=== PATIENT | female | born 1965 | race Two or more races ===

== ENCOUNTER 2024-07-29 09:58 | Inpatient (IN) | payer MEDICAID, OTHER ==
[~2024-07-29] VITALS: Ht 165.1 cm; Wt 65.5 kg
[2024-07-29 11:22] LABS: Alanine Aminotransferase 18 U/L (7-40); Albumin 3.7 g/dL (3.2-4.8); Alkaline Phosphatase 80 U/L (46-116); Anion Gap 8 (5-15); Aspartate Aminotransferase 36 U/L (13-40); Bilirubin, Total 0.6 mg/dL (0.2-1.0); Blood Urea Nitrogen 15 mg/dL (9-23); Calcium 9.5 mg/dL (8.7-10.4); Carbon Dioxide 23 mmol/L (20-30); Chloride 107 mmol/L (98-107); Glucose 226 mg/dL (74-106); Magnesium 1.7 mg/dL (1.6-2.6); Potassium 4.5 mmol/L (3.5-5.1); Sodium 138 mmol/L (136-145); Total Protein 6.5 g/dL (5.7-8.2)
[2024-07-29 11:23] LABS: Basophils # (auto) 0 10 ^3/uL (0-0.2); Basophils % (auto) 0.3 % (0.0-2.0); Eosinophils # (auto) 0.1 10 ^3/uL (0-0.8); Eosinophils % (auto) 1.3 % (0.0-7.0); Hematocrit 41.5 % (36.0-46.0); Hemoglobin 13.7 g/dL (12.2-16.2); Lymphocytes # (auto) 0.7 10 ^3/uL (0.4-5.4); Lymphocytes % (auto) 13.7 % (10.0-50.0); Mean Corpuscular Hemoglobin 31.8 pg (28.0-32.0); Mean Corpuscular Volume 96.4 fL (80.0-100.0); Monocytes # (auto) 0.4 10 ^3/uL (0-1.3); Monocytes % (auto) 8.4 % (0.0-12.0); Neutrophils # (auto) 3.8 10 ^3/uL (1.6-8.6); Neutrophils % (auto) 76.3 % (37.0-80.0); Nucleated Red Blood Cells % 0.2 %; Platelet Count (auto) 220 10^3/uL (140-450); Red Cell Distribution Width 14.3 % (11.8-14.3); White Blood Cell 4.9 10^3/uL (4.4-10.8)
[2024-07-29 15:41] LABS: COVID19 ANTIGEN SOFIA FIA NEGATIVE (NEGATIVE)
[2024-07-29] MEDS ORDERED: MORPHINE SULFATE INJ 2 MG/ml SYRG IV PRN ×2 (16:15)
[2024-07-29] MEDS ORDERED: DEXTROSE (50%) 50ML SYRG IV PRN (16:15)
[2024-07-29] MEDS ORDERED: ACETAMINOPHEN 325 MG TAB PO PRN (16:15)
[2024-07-29] MEDS ORDERED: NITROGLYCERIN 0.4 MG SL TAB SL PRN (16:15)
[2024-07-29] MEDS ORDERED: VANCOMYCIN PER PHARMACY 0 MG IV SCH (16:30)
[2024-07-29] MEDS: ACCU-CHEK COMFORT CURVE STRIP VI SCH (17:00)
[2024-07-29] MEDS: InsuLIN REG 1unit/0.01ml Soln (100units/ml) SC SCH ×2 (17:28→22:54)
[2024-07-29] MEDS: traMADol HCL 50 MG TAB PO PRN (17:31)
[2024-07-29 19:31] LABS: Urine Bacteria None Seen /hpf (None Seen)
[2024-07-29 19:53] LABS: Urine Blood Negative /uL (Negative); Urine Clarity Clear (Clear); Urine Color Yellow (Yellow); Urine Hyaline Cast FEW /lpf (0 - 2); Urine Protein, UAD 1+ (Negative); Urine Specific Gravity 1.023 (1.001-1.035); Urine Urobilinogen Normal (Negative); Urine WBC 2 /hpf (0 - 5)
[2024-07-29] MEDS: SODIUM CHLORIDE 0.9% 1,000 ML IV ONE (20:25)
[2024-07-29] MEDS: CLINDAMYCIN 600MG IV 50 ML IV ONE (20:25)
[2024-07-29] MEDS: SODIUM CHLORIDE 0.9% 1,000 ML IV SCH (20:25)
[2024-07-29] MEDS: VANCOMYCIN 1GM/250ML 200 ML IV ONE (20:25)
[2024-07-29] MEDS: ASCORBIC ACID 500 MG TAB PO SCH (22:55)
[2024-07-29] MEDS: ENOXAPARIN SOD 60 MG/0.6 ML SYRINGE SC SCH (22:55)
[2024-07-30] VITALS (8 sets, daily range): BP systolic 127–148; BP diastolic 76–90; PULSE 75–95; RESP 16–20; TEMP 97.7–98.3; O2SAT 97–98
[2024-07-30] MEDS ORDERED: TRAM50TA2 PO (01:16)
[2024-07-30] MEDS ORDERED: GABA-1308 PO (01:16)
[2024-07-30] MEDS ORDERED: FAMO20TA10 PO (01:16)
[2024-07-30] MEDS ORDERED: LEV75T PO (01:16)
[2024-07-30] MEDS ORDERED: FURO1TAB33 PO (01:18)
[2024-07-30] MEDS ORDERED: POTA-220 PO (01:18)
[2024-07-30] MEDS ORDERED: METF-370 PO (01:20)
[2024-07-30 06:22] LABS: Lactic Acid w/Reflex 2.4 mmol/L (0.4-2.0)
[2024-07-30 06:31] LABS: Basophils # (auto) 0 10 ^3/uL (0-0.2); Basophils % (auto) 0.8 % (0.0-2.0); Eosinophils # (auto) 0.1 10 ^3/uL (0-0.8); Eosinophils % (auto) 2.9 % (0.0-7.0); Hematocrit 35.9 % (36.0-46.0); Hemoglobin 11.9 g/dL (12.2-16.2); Lymphocytes # (auto) 0.9 10 ^3/uL (0.4-5.4); Lymphocytes % (auto) 21.7 % (10.0-50.0); Mean Corpuscular Hemoglobin 31.6 pg (28.0-32.0); Mean Corpuscular Hgb Conc. 33.1 g/dL (32.0-36.0); Mean Corpuscular Volume 95.6 fL (80.0-100.0); Monocytes # (auto) 0.5 10 ^3/uL (0-1.3); Monocytes % (auto) 11.5 % (0.0-12.0); Neutrophils # (auto) 2.7 10 ^3/uL (1.6-8.6); Neutrophils % (auto) 63.1 % (37.0-80.0); Nucleated Red Blood Cells % 0.1 %; Platelet Count (auto) 214 10^3/uL (140-450); Red Blood Cells 3.76 10^6/uL (4.0-5.20); Red Cell Distribution Width 14.3 % (11.8-14.3); White Blood Cell 4.3 10^3/uL (4.4-10.8)
[2024-07-30 06:46] LABS: Alanine Aminotransferase 11 U/L (7-40); Albumin 3.2 g/dL (3.2-4.8); Alkaline Phosphatase 70 U/L (46-116); Anion Gap 9 (5-15); Aspartate Aminotransferase 30 U/L (13-40); BUN/Creatinine Ratio 24.2 (10.0-20.0); Bilirubin, Total 0.7 mg/dL (0.2-1.0); Blood Urea Nitrogen 15 mg/dL (9-23); Calcium 8.8 mg/dL (8.7-10.4); Carbon Dioxide 22 mmol/L (20-30); Chloride 110 mmol/L (98-107); Glucose 135 mg/dL (74-106); Potassium 3.6 mmol/L (3.5-5.1); Sodium 141 mmol/L (136-145); Total Protein 5.5 g/dL (5.7-8.2)
[2024-07-30] MEDS ORDERED: ENOXAPARIN SOD 40 MG/0.4 ML SYRINGE SC SCH (10:00)
[2024-07-30] MEDS: ZINC SULFATE 220mg CAP or TAB PO SCH (10:26)
[2024-07-30] MEDS: MULTIPLE VITAMIN TAB PO SCH (10:26)
[2024-07-30] MEDS ORDERED: traMADol HCL 50 MG TAB PO PRN (10:30)
[2024-07-30] MEDS ORDERED: ACETAMINOPHEN 325 MG TAB PO PRN ×2 (10:30→13:00)
[2024-07-30] MEDS: VANCOMYCIN 1.5GM/300ML 300 ML IV ONE (11:14)
[2024-07-30] MEDS: traMADol HCL 50 MG TAB PO PRN (13:37)
[2024-07-30] MEDS: ONDANSETRON HCL 4 MG/2 ML VIAL IV PRN (15:56)
[2024-07-30] MEDS: Ensure HIGH Protein Chocolate 8oz Bottle PO SCH (18:25)
[2024-07-31] VITALS (7 sets, daily range): BP systolic 96–146; BP diastolic 66–89; PULSE 90–97; RESP 18–97; TEMP 97.9–98.3; O2SAT 18–97
[2024-07-31] MEDS: VANCOMYCIN 1GM/250ML 200 ML IV SCH (04:07)
[2024-07-31] MEDS: PIPERACILLIN-TAZOB 3.375GM 100 ML IV SCH (21:24)
[2024-08-01] VITALS (8 sets, daily range): BP systolic 116–145; BP diastolic 78–96; PULSE 78–100; RESP 17–20; TEMP 97.5–98.7; O2SAT 91–97
[2024-08-01] MEDS: DOCUSATE SOD 100 MG CAP PO PRN (12:35)
[2024-08-01] MEDS: CEFEPIME 1GM/ 50ML 50 ML IV ONE (16:28)
[2024-08-01] MEDS: CEFEPIME 1GM/ 50ML 50 ML IV SCH (21:20)
[2024-08-02] VITALS (8 sets, daily range): BP systolic 110–163; BP diastolic 78–97; PULSE 83–103; RESP 16–19; TEMP 97.5–98.9; O2SAT 95–98
[2024-08-02] MEDS ORDERED: IOHEXOL 300 MG/ML 100ML BOTTLE IJ ONE (08:13)
[2024-08-03 01:00] VITALS: BP 154/84; PULSE 99; RESP 20; TEMP 97.8; O2SAT 93
[2024-08-03 05:00] VITALS: BP 106/79; PULSE 93; RESP 20; TEMP 97.9; O2SAT 96
[2024-08-03 08:00] VITALS: PULSE 86
[2024-08-03 09:00] VITALS: BP 144/81; PULSE 89; RESP 16; TEMP 98.2; O2SAT 94
[2024-08-03 13:00] VITALS: BP 146/92; PULSE 104; RESP 18; TEMP 98.1; O2SAT 98
[2024-08-03] MEDS ORDERED: CIPR-173 PO (15:56)
[2024-08-03] MEDS: CIPROFLOXACIN HCL 500 MG TAB PO ONE (16:30)
[2024-08-03 17:00] VITALS: BP 143/91; PULSE 103; RESP 17; TEMP 98; O2SAT 96
== END 2024-08-03 19:23 | disposition home or self-care (01) | DRG 385 ==
LOC: ER 09:58 → TELE 16:13 → TELE-WESTW 23:58
PROVIDERS: ADMIT Internal Medicine; ATTEND Internal Medicine
PROC: 06HM33Z Insertion of Infusion Device into Right Femoral Vein, Percutaneous Approach (ICD-10-PCS; principal; 2024-07-29)
DX: N61.1 Abscess of the breast and nipple (principal); E87.20 Acidosis, unspecified; I82.611 Acute embolism and thrombosis of superficial veins of right upper extremity; E78.00 Pure hypercholesterolemia, unspecified; E11.65 Type 2 diabetes mellitus with hyperglycemia; B95.8 Unspecified staphylococcus as the cause of diseases classified elsewhere; I10 Essential (primary) hypertension; K59.09 Other constipation; Z20.822 Contact with and (suspected) exposure to COVID-19; I89.0 Lymphedema, not elsewhere classified; Z85.3 Personal history of malignant neoplasm of breast; Z90.12 Acquired absence of left breast and nipple; Z92.21 Personal history of antineoplastic chemotherapy; Z92.3 Personal history of irradiation; Z80.1 Family history of malignant neoplasm of trachea, bronchus and lung; Z80.42 Family history of malignant neoplasm of prostate; Z80.0 Family history of malignant neoplasm of digestive organs; T38.3X5A Adverse effect of insulin and oral hypoglycemic [antidiabetic] drugs, initial encounter; Y92.89 Other specified places as the place of occurrence of the external cause
CPT/HCPCS: 36415; 71045; 71260; 74018; 80053; 80202; 81001; 82565; 82962; 83036; 83605; 83735; 85025; 87077; 87081; 87186; 87205; 87426; 93005; 93970; 96372; 97110; 97116; 97163; 97530; G0378; J1815; J2405; J2543

== ENCOUNTER 2024-08-10 15:16 | Emergency (ER) | payer MEDICAID ==
[~2024-08-10] VITALS: Ht 165.1 cm; Wt 69.0 kg
[~2024-08-10 15:16] MED LIST: CIPR-173 PO; FAMO20TA10 PO; FURO1TAB33 PO; GABA-1308 PO; LEV75T PO; METF-370 PO; POTA-220 PO; TRAM50TA2 PO
[2024-08-10 15:45] VITALS: PULSE 98; RESP 18; O2SAT 97
[2024-08-10] MEDS: KETOROLAC TROMETH 60MG/2ML VIAL IM ONE (18:27)
[2024-08-10 18:30] VITALS: BP 154/91; PULSE 101; RESP 14; O2SAT 94
[2024-08-10] MEDS ORDERED: DICL50TA2 PO (18:57)
[2024-08-10] MEDS ORDERED: CYCL-839 PO (18:57)
[2024-08-10 18:58] LABS: Urine Bacteria FEW /hpf (None Seen); Urine Blood Negative /uL (Negative); Urine Budding Yeast OCCASIONAL /hpf (None Seen); Urine Clarity Clear (Clear); Urine Color Light-Yellow (Yellow); Urine Mucus FEW (None Seen); Urine Protein, UAD TRACE (Negative); Urine Specific Gravity 1.021 (1.001-1.035); Urine Urobilinogen Normal (Negative); Urine WBC 5 /hpf (0 - 5); Urine pH 5.5 (5.0-9.0)
== END 2024-08-10 19:50 | disposition home or self-care (01) ==
LOC: EDBD 15:16 → ER 15:16
DX: S20.212A Contusion of left front wall of thorax, initial encounter (principal); C50.912 Malignant neoplasm of unspecified site of left female breast; C79.9 Secondary malignant neoplasm of unspecified site; Z98.890 Other specified postprocedural states; Z79.899 Other long term (current) drug therapy; W18.39XA Other fall on same level, initial encounter; Y93.89 Activity, other specified; Y92.098 Other place in other non-institutional residence as the place of occurrence of the external cause; Y99.8 Other external cause status
CPT/HCPCS: 71046; 71101; 81001; 96372; 99284; J1885

== ENCOUNTER 2024-08-18 17:27 | Inpatient (IN) | payer MEDICAID ==
[~2024-08-18] VITALS: Ht 165.1 cm; Wt 65.9 kg
[~2024-08-18 17:27] MED LIST changes: -CIPR-173 PO; +CYCL-839 PO; +DICL50TA2 PO
[2024-08-18 18:12] LABS: Urine Bacteria None Seen /hpf (None Seen)
[2024-08-18 18:23] LABS: Urine Blood Negative /uL (Negative); Urine Clarity Clear (Clear); Urine Color Light-Yellow (Yellow); Urine Hyaline Cast MOD /lpf (0 - 2); Urine Mucus FEW (None Seen); Urine Protein, UAD Negative (Negative); Urine Specific Gravity 1.011 (1.001-1.035); Urine Urobilinogen Normal (Negative); Urine WBC <1 /hpf (0 - 5)
[2024-08-18 20:12] LABS: Basophils # (auto) 0 10 ^3/uL (0-0.2); Basophils % (auto) 0.6 % (0.0-2.0); Eosinophils # (auto) 0.1 10 ^3/uL (0-0.8); Eosinophils % (auto) 1.4 % (0.0-7.0); Hematocrit 41.8 % (36.0-46.0); Hemoglobin 13.9 g/dL (12.2-16.2); Lymphocytes # (auto) 0.9 10 ^3/uL (0.4-5.4); Lymphocytes % (auto) 16.8 % (10.0-50.0); Mean Corpuscular Hgb Conc. 33.3 g/dL (32.0-36.0); Mean Corpuscular Volume 93.1 fL (80.0-100.0); Monocytes # (auto) 0.5 10 ^3/uL (0-1.3); Neutrophils # (auto) 3.9 10 ^3/uL (1.6-8.6); Neutrophils % (auto) 71.2 % (37.0-80.0); Nucleated Red Blood Cells % 0.9 %; Platelet Count (auto) 200 10^3/uL (140-450); Red Blood Cells 4.49 10^6/uL (4.0-5.20); Red Cell Distribution Width 14.9 % (11.8-14.3); White Blood Cell 5.4 10^3/uL (4.4-10.8)
[2024-08-18 20:24] LABS: Chloride 102 mmol/L (98-107); Sodium 135 mmol/L (136-145)
[2024-08-18 20:25] LABS: Anion Gap 12 (5-15); Carbon Dioxide 21 mmol/L (20-31)
[2024-08-18 20:26] LABS: Calcium 9.7 mg/dL (8.7-10.4)
[2024-08-18 20:31] LABS: BUN/Creatinine Ratio 26.5 (10.0-20.0); Blood Urea Nitrogen 22 mg/dL (9-23); Glucose 195 mg/dL (74-106)
[2024-08-18] MEDS: CLINDAMYCIN 600MG IV 50 ML IV ONE (21:01)
[2024-08-18 21:14] VITALS: PULSE 104; RESP 21; O2SAT 95
[2024-08-18 21:42] LABS: Lactic Acid w/Reflex 4.7 mmol/L (0.4-2.0)
[2024-08-18] MEDS: traMADol HCL 50 MG TAB PO ONE (22:47)
[2024-08-19] VITALS (7 sets, daily range): BP systolic 133–154; BP diastolic 89–91; PULSE 97–105; RESP 17–20; TEMP 97.3–97.8; O2SAT 94–98
[2024-08-19] MEDS ORDERED: ACETAMINOPHEN 325 MG TAB PO PRN (01:30)
[2024-08-19] MEDS ORDERED: VANCOMYCIN PER PHARMACY 0 MG IV SCH (01:30)
[2024-08-19] MEDS ORDERED: DEXTROSE (50%) 50ML SYRG IV PRN (01:30)
[2024-08-19] MEDS ORDERED: MORPHINE SULFATE INJ 2 MG/ml SYRG IV PRN (01:30)
[2024-08-19] MEDS ORDERED: NITROGLYCERIN 0.4 MG SL TAB SL PRN (01:30)
[2024-08-19] MEDS: PIPERACILLIN-TAZOB 3.375GM 100 ML IV SCH ×2 (03:04→21:05)
[2024-08-19] MEDS: SODIUM CHLORIDE 0.9% 1,000 ML IV ONE (03:14)
[2024-08-19] MEDS: ONDANSETRON HCL 4 MG/2 ML VIAL IV PRN (03:29)
[2024-08-19 04:37] LABS: Basophils # (auto) 0 10 ^3/uL (0-0.2); Basophils % (auto) 0.5 % (0.0-2.0); Eosinophils # (auto) 0.1 10 ^3/uL (0-0.8); Eosinophils % (auto) 1.1 % (0.0-7.0); Hemoglobin 13.4 g/dL (12.2-16.2); Lymphocytes # (auto) 0.7 10 ^3/uL (0.4-5.4); Lymphocytes % (auto) 14.3 % (10.0-50.0); Mean Corpuscular Hemoglobin 30.8 pg (28.0-32.0); Mean Corpuscular Hgb Conc. 33.6 g/dL (32.0-36.0); Mean Corpuscular Volume 91.7 fL (80.0-100.0); Monocytes # (auto) 0.5 10 ^3/uL (0-1.3); Monocytes % (auto) 10.3 % (0.0-12.0); Neutrophils # (auto) 3.8 10 ^3/uL (1.6-8.6); Neutrophils % (auto) 73.8 % (37.0-80.0); Nucleated Red Blood Cells % 0.1 %; Platelet Count (auto) 192 10^3/uL (140-450); Red Blood Cells 4.37 10^6/uL (4.0-5.20); Red Cell Distribution Width 14.9 % (11.8-14.3); White Blood Cell 5.2 10^3/uL (4.4-10.8)
[2024-08-19 04:46] LABS: Chloride 101 mmol/L (98-107); Potassium 4.2 mmol/L (3.5-5.1); Sodium 134 mmol/L (136-145)
[2024-08-19 04:47] LABS: Anion Gap 10 (5-15); Calcium 9.6 mg/dL (8.7-10.4); Carbon Dioxide 23 mmol/L (20-31)
[2024-08-19 04:52] LABS: BUN/Creatinine Ratio 31.3 (10.0-20.0); Blood Urea Nitrogen 26 mg/dL (9-23); Glucose 221 mg/dL (74-106)
[2024-08-19] MEDS: traMADol HCL 50 MG TAB PO PRN (05:59)
[2024-08-19] MEDS: InsuLIN REG 1unit/0.01ml Soln (100units/ml) SC SCH (06:38)
[2024-08-19] MEDS: ACCU-CHEK COMFORT CURVE STRIP VI SCH (06:43)
[2024-08-19 09:36] LABS: Lactic Acid w/Reflex 4.1 mmol/L (0.4-2.0)
[2024-08-19] MEDS: ENOXAPARIN SOD 40 MG/0.4 ML SYRINGE SC SCH (12:19)
[2024-08-19] MEDS: DOCUSATE SOD 100 MG CAP PO PRN (12:58)
[2024-08-19] MEDS: SODIUM CHLORIDE 0.9% 1,000 ML IV SCH (15:48)
[2024-08-19 17:05] LABS: Lactic Acid w/Reflex 4.6 mmol/L (0.4-2.0)
[2024-08-19] MEDS: SODIUM CHLORIDE 0.9% 500 ML IV ONE (17:34)
[2024-08-19] MEDS ORDERED: PIPERACILLIN-TAZOB 3.375GM 100 ML IV SCH (18:00)
[2024-08-19] MEDS: VANCOMYCIN 1GM/200ML PREMIX 250 ML IV SCH (18:25)
[2024-08-19] MEDS: DOCUSATE SOD 100 MG CAP PO SCH (21:29)
[2024-08-19 21:45] LABS: Lactic Acid w/Reflex 4.6 mmol/L (0.4-2.0)
[2024-08-20] VITALS (8 sets, daily range): BP systolic 138–171; BP diastolic 82–95; PULSE 90–115; RESP 17–19; TEMP 96.8–98.2; O2SAT 92–96
[2024-08-20 06:53] LABS: Anion Gap 9 (5-15); Carbon Dioxide 18 mmol/L (20-31); Chloride 106 mmol/L (98-107); Potassium 4.1 mmol/L (3.5-5.1); Sodium 133 mmol/L (136-145)
[2024-08-20 06:54] LABS: Calcium 9.4 mg/dL (8.7-10.4)
[2024-08-20 06:59] LABS: BUN/Creatinine Ratio 22.7 (10.0-20.0); Blood Urea Nitrogen 17 mg/dL (9-23); Glucose 140 mg/dL (74-106)
[2024-08-20 07:28] LABS: Basophils # (auto) 0 10 ^3/uL (0-0.2); Basophils % (auto) 0.5 % (0.0-2.0); Eosinophils # (auto) 0.1 10 ^3/uL (0-0.8); Eosinophils % (auto) 1.3 % (0.0-7.0); Hematocrit 43.4 % (36.0-46.0); Hemoglobin 14.1 g/dL (12.2-16.2); Lymphocytes # (auto) 0.8 10 ^3/uL (0.4-5.4); Lymphocytes % (auto) 15.4 % (10.0-50.0); Mean Corpuscular Hemoglobin 30.9 pg (28.0-32.0); Mean Corpuscular Hgb Conc. 32.5 g/dL (32.0-36.0); Mean Corpuscular Volume 95.1 fL (80.0-100.0); Monocytes # (auto) 0.6 10 ^3/uL (0-1.3); Monocytes % (auto) 11.3 % (0.0-12.0); Neutrophils # (auto) 3.6 10 ^3/uL (1.6-8.6); Neutrophils % (auto) 71.5 % (37.0-80.0); Nucleated Red Blood Cells % 0.1 %; Platelet Count (auto) 156 10^3/uL (140-450); Red Blood Cells 4.56 10^6/uL (4.0-5.20); Red Cell Distribution Width 15.1 % (11.8-14.3)
[2024-08-20 17:14] LABS: Lactic Acid w/Reflex 4.7 mmol/L (0.4-2.0)
[2024-08-20] MEDS: BUMETANIDE 2.5mg/10ml (0.25 mg/ml) INJ IV SCH (18:36)
[2024-08-20] MEDS: VANCOMYCIN 1GM/200ML PREMIX 200 ML IV SCH (22:52)
[2024-08-21] VITALS (8 sets, daily range): BP systolic 142–160; BP diastolic 86–99; PULSE 94–114; RESP 16–18; TEMP 96–98.8; O2SAT 93–98
[2024-08-21 15:43] LABS: Body Fluid Polymorphonuclear 6 % (0-25); Body Fluid Red Blood Cells 4720 CUMM (0-2000); Body Fluid White Blood Cells 30 CUMM (0-200)
[2024-08-22] VITALS (8 sets, daily range): BP systolic 129–179; BP diastolic 81–99; PULSE 91–128; RESP 18; TEMP 97.4–97.7; O2SAT 95–98
[2024-08-22] MEDS: Juven Orange Powder PACKET 27.5gm PO SCH (10:27)
[2024-08-22 12:06] LABS: Protein, Body Fluid 3.3 g/dL (.)
[2024-08-22] MEDS: ceFAZolin 2 GM/D5W50ml 50 ML IV SCH (22:00)
[2024-08-23] VITALS (7 sets, daily range): BP systolic 137–173; BP diastolic 88–105; PULSE 98–109; RESP 18–20; TEMP 97.5–97.7; O2SAT 91–98
[2024-08-23] MEDS: hydrALAZINE HCL 10 MG TAB PO SCH (04:25)
[2024-08-23 17:08] LABS: Basophils # (auto) 0 10 ^3/uL (0-0.2); Basophils % (auto) 0.3 % (0.0-2.0); Eosinophils # (auto) 0 10 ^3/uL (0-0.8); Eosinophils % (auto) 0.2 % (0.0-7.0); Hematocrit 41.5 % (36.0-46.0); Hemoglobin 13.8 g/dL (12.2-16.2); Lymphocytes # (auto) 0.7 10 ^3/uL (0.4-5.4); Lymphocytes % (auto) 14.7 % (10.0-50.0); Mean Corpuscular Hemoglobin 30.4 pg (28.0-32.0); Mean Corpuscular Hgb Conc. 33.2 g/dL (32.0-36.0); Mean Corpuscular Volume 91.5 fL (80.0-100.0); Monocytes # (auto) 0.6 10 ^3/uL (0-1.3); Monocytes % (auto) 11.7 % (0.0-12.0); Neutrophils # (auto) 3.6 10 ^3/uL (1.6-8.6); Neutrophils % (auto) 73.1 % (37.0-80.0); Nucleated Red Blood Cells % 0.2 %; Platelet Count (auto) 261 10^3/uL (140-450); Red Blood Cells 4.54 10^6/uL (4.0-5.20)
[2024-08-23 18:22] LABS: Chloride 100 mmol/L (98-107); Potassium 3.1 mmol/L (3.5-5.1); Sodium 134 mmol/L (136-145)
[2024-08-23 18:23] LABS: Anion Gap 13 (5-15); Calcium 9.5 mg/dL (8.7-10.4); Carbon Dioxide 21 mmol/L (20-31)
[2024-08-23 18:28] LABS: BUN/Creatinine Ratio 34.4 (10.0-20.0); Blood Urea Nitrogen 31 mg/dL (9-23); Glucose 194 mg/dL (74-106)
[2024-08-24] VITALS (7 sets, daily range): BP systolic 129–163; BP diastolic 71–103; PULSE 96–121; RESP 18–21; TEMP 97–98; O2SAT 95–100
[2024-08-24] MEDS: CYCLOBENZAPRINE HCL 10 MG TAB PO PRN (14:15)
[2024-08-24 22:28] LABS: Lactic Acid w/Reflex 4.5 mmol/L (0.4-2.0)
[2024-08-24 22:31] LABS: INR 1.03 (0.9-1.15); Partial Thromboplastin Time 26.8 SEC (24.5-34.5); Prothrombin Time 10.9 sec (9.3-11.8)
[2024-08-25] VITALS (7 sets, daily range): BP systolic 142–150; BP diastolic 70–93; PULSE 87–112; RESP 18–20; TEMP 97.1–98.2; O2SAT 95–97
[2024-08-25] MEDS: SODIUM CHLORIDE 0.9% 250 ML IV ONE (00:58)
[2024-08-25] MEDS ORDERED: CEPH250C PO (12:37)
[2024-08-25] MEDS ORDERED: SACC1CAP3 PO (12:37)
[2024-08-25 15:40] LABS: Basophils # (auto) 0 10 ^3/uL (0-0.2); Basophils % (auto) 0.1 % (0.0-2.0); Eosinophils # (auto) 0 10 ^3/uL (0-0.8); Hematocrit 44.8 % (36.0-46.0); Hemoglobin 14.9 g/dL (12.2-16.2); Lymphocytes # (auto) 0.8 10 ^3/uL (0.4-5.4); Lymphocytes % (auto) 11.9 % (10.0-50.0); Mean Corpuscular Hemoglobin 30.2 pg (28.0-32.0); Mean Corpuscular Hgb Conc. 33.3 g/dL (32.0-36.0); Mean Corpuscular Volume 90.7 fL (80.0-100.0); Monocytes # (auto) 0.8 10 ^3/uL (0-1.3); Monocytes % (auto) 11.9 % (0.0-12.0); Neutrophils # (auto) 5.3 10 ^3/uL (1.6-8.6); Neutrophils % (auto) 76.1 % (37.0-80.0); Nucleated Red Blood Cells % 0.3 %; Platelet Count (auto) 231 10^3/uL (140-450); Red Blood Cells 4.94 10^6/uL (4.0-5.20); Red Cell Distribution Width 15.5 % (11.8-14.3)
[2024-08-25 15:51] LABS: Chloride 99 mmol/L (98-107); Potassium 3.5 mmol/L (3.5-5.1); Sodium 134 mmol/L (136-145)
[2024-08-25 15:52] LABS: Anion Gap 15 (5-15); Carbon Dioxide 20 mmol/L (20-31)
[2024-08-25 15:53] LABS: Calcium 9.7 mg/dL (8.7-10.4)
[2024-08-25 15:57] LABS: Glucose 157 mg/dL (74-106)
[2024-08-25 15:58] LABS: BUN/Creatinine Ratio 36.5 (10.0-20.0); Blood Urea Nitrogen 38 mg/dL (9-23)
[2024-08-25 16:13] LABS: Lactic Acid w/Reflex 4.6 mmol/L (0.4-2.0)
== END 2024-08-25 18:45 | disposition home health service (06) | DRG 382 ==
LOC: ER 17:27 → TELE 08-19 01:30 → TELE-CENTR 08-19 09:55
PROVIDERS: ADMIT Nurse Practitioner Family; ATTEND Hospitalist
PROC: 06HY33Z Insertion of Infusion Device into Lower Vein, Percutaneous Approach (ICD-10-PCS; 2024-08-18)
PROC: B54BZZA Ultrasonography of Right Lower Extremity Veins, Guidance (ICD-10-PCS; 2024-08-18)
PROC: 0W993ZZ Drainage of Right Pleural Cavity, Percutaneous Approach (ICD-10-PCS; principal; 2024-08-21)
DX: C79.81 Secondary malignant neoplasm of breast (principal); D84.9 Immunodeficiency, unspecified; C77.8 Secondary and unspecified malignant neoplasm of lymph nodes of multiple regions; E87.20 Acidosis, unspecified; E88.09 Other disorders of plasma-protein metabolism, not elsewhere classified; L03.313 Cellulitis of chest wall; J91.0 Malignant pleural effusion; E11.65 Type 2 diabetes mellitus with hyperglycemia; E78.00 Pure hypercholesterolemia, unspecified; I10 Essential (primary) hypertension; J98.11 Atelectasis; E07.89 Other specified disorders of thyroid; I89.0 Lymphedema, not elsewhere classified; Z90.12 Acquired absence of left breast and nipple; Z85.3 Personal history of malignant neoplasm of breast; Z80.42 Family history of malignant neoplasm of prostate; Z80.1 Family history of malignant neoplasm of trachea, bronchus and lung; Z17.21 Progesterone receptor positive status; Z80.0 Family history of malignant neoplasm of digestive organs; Z17.0 Estrogen receptor positive status [ER+]; Z79.899 Other long term (current) drug therapy
CPT/HCPCS: 32555; 36415; 71045; 71250; 76604; 76942; 80048; 80202; 81001; 82962; 83605; 83986; 85025; 85610; 85730; 87040; 87077; 87081; 87205; 89051; 93970; 97110; 97116; 97163; G0378; J1815; J2405; J2543; J3490